=== PATIENT | female | born 1995 | race Caucasian/White ===

== ENCOUNTER 2016-11-05 15:44 | Emergency (ER) | payer MEDICAID ==
[~2016-11-05] VITALS: Ht 162.6 cm; Wt 84.8 kg
[2016-11-05 15:56] VITALS: BP_SYST 120
[2016-11-05] MEDS ORDERED: HYDROcodone/ACETAMIN 5-325 MG TAB (NORCO/ VICODIN) PO ONE (16:15)
[2016-11-05 16:56] VITALS: BP_SYST 118
== END 2016-11-05 16:56 | disposition home or self-care (01) ==
LOC: SED 15:44
DX: S82.442D Displaced spiral fracture of shaft of left fibula, subsequent encounter for closed fracture with routine healing (principal); W10.9XXD Fall (on) (from) unspecified stairs and steps, subsequent encounter
CPT/HCPCS: 99283

== ENCOUNTER 2018-05-15 10:38 | Emergency (ER) | payer MEDICAID ==
[~2018-05-15] VITALS: Ht 162.6 cm; Wt 72.6 kg
[2018-05-15 10:45] VITALS: BP_SYST 100
--- NOTE | 2018-05-15 11:03 | NUR ---
Pt medicated in triage per fever protocol.
[2018-05-15] MEDS ORDERED: ACETAMINOPHEN 500 MG TABLET ONE (11:05)
[2018-05-15] MEDS ORDERED: ACETAMINOPHEN 500 MG TABLET PO ONE (11:15)
--- NOTE | 2018-05-15 11:35 | NUR ---
Patient to ER bed 5 to gown for evaluation. Side rails up. Report given to Jacky WORKMAN.
--- NOTE | 2018-05-15 11:40 | NUR ---
Pt presents to ED with c/o fever x 2 days. For the past week she has experienced UTI symptoms of dysuria and frequency. Pt reports she has a 3 month old baby which she breast feeds. Otherwise pt denies chest pain, sob, hematuria, flank pain, abdominal pain, nausea, vomiting, diarrhea, or any other complaints at this time.
--- NOTE | 2018-05-15 11:50 | NUR ---
ER Dr. Pabon at bedside examining patient.
[2018-05-15] MEDS ORDERED: NACL 0.9% 1,000 ML IV ONE (11:54)
--- NOTE | 2018-05-15 11:54 | NUR ---
Temp recheck after medication 98.5F
[2018-05-15] MEDS ORDERED: ONDANSETRON HCL 4 MG/2 ML VIAL IVP ONE (12:00)
--- NOTE | 2018-05-15 12:05 | NUR ---
# 20 gauge angiocath placed to LAC. Use of asceptic technique. Opsite placed over site. Blood return noted. Blood for lab drawn from site. Flushed with 10 cc of normal saline. No evidence of infiltration noted. Patient tolerated well.
[2018-05-15 12:33] LABS: BILIRUBIN,URINE 1+ (NEGATIVE); BLOOD, URINE 1+ (NEGATIVE); CLARITY/URINE CLOUDY (CLEAR); COLOR,URINE YELLOW (YELLOW); GLUCOSE,URINE NEGATIVE (NEGATIVE); KETONES,URINE TRACE (NEGATIVE); LEUKOCYTE ESTERASE ,URINE 2+ (NEGATIVE); NITRITE, URINE NEGATIVE (NEGATIVE); PROTEIN URINE 2+ (NEGATIVE)
[2018-05-15 12:36] LABS: BASOPHILS % (AUTO) 0.1 % (0.0-2.0); HEMOGLOBIN 12.2 g/dL (12.0-16.0); LYMPHOCYTES % (AUTO) 5.4 % (20.5-51.5); MEAN CORPUSCULAR HEMOGLOBIN 29 pg (27-31); MEAN CORPUSCULAR HGB CONC 34 % (32-36); MEAN CORPUSCULAR VOLUME 86 fL (79.0-98.0); MONOCYTES # (AUTO) 1.5 K/uL (0.0-1.0); MONOCYTES % (AUTO) 8.1 % (1.7-9.3); NEUTROPHILS % (AUTO) 86.4 % (40.0-70.0); PLATELET COUNT (AUTO) 188 K/uL (130-430); WHITE BLOOD COUNT (AUTO) 18.5 K/uL (4.8-10.8)
[2018-05-15] MEDS ORDERED: ACETAMINOPHEN 120 MG SUPP.RECT RC ONE (12:45)
[2018-05-15] MEDS ORDERED: IBUPROFEN 800 MG TABLET PO ONE (12:45)
[2018-05-15 12:46] LABS: BACTERIA,URINE MODERATE /HPF (None Seen); WBC,URINE 50-80 /HPF (0-3)
[2018-05-15 12:47] LABS: MUCUS,URINE 1+ /LPF (None Seen)
--- NOTE | 2018-05-15 12:47 | NUR ---
Temp 97.[address] Pabon.
[2018-05-15 12:55] LABS: CALCIUM 8.8 mg/dL (8.4-11.0); CREATININE 0.96 mg/dL (0.55-1.30); POTASSIUM 3.2 mmol/L (3.5-5.1)
[2018-05-15 12:59] LABS: ALBUMIN 3.1 g/dL (3.4-4.8); INR 1.1 (0.8-1.2); PROTHROMBIN TIME 10.9 SECS (9.5-12.5); TOTAL BILIRUBIN 0.3 mg/dL (0.0-1.0)
--- NOTE | 2018-05-15 13:01 | NUR ---
Radiology at bedside.
[2018-05-15] MEDS ORDERED: cefTRIAXone 1 GM IVPB PREMIX 50 ML IV ONE (13:15)
[2018-05-15 14:00] VITALS: BP_SYST 105
--- NOTE | 2018-05-15 14:00 | NUR ---
Patient given written and verbal discharge instructions and verbalizes understanding. ER MD discussed with patient the results and treatment provided. Patient in stable condition. ID arm band removed. IV catheter removed intact and dressing applied, no active bleeding. Rx of Keflex,Tylenol given. Patient educated on pain management and to follow up with PMD. Pain Scale 0. Opportunity for questions provided and answered. Medication side effect fact sheet provided.
== END 2018-05-15 14:00 | disposition home or self-care (01) ==
LOC: SED 10:38
DX: N30.90 Cystitis, unspecified without hematuria (principal); R50.9 Fever, unspecified
CPT/HCPCS: 36415; 71045; 80053; 81000; 81025; 83605; 83690; 85025; 85610; 85730; 87040; 87086; 87186; 96365; 96375; 99284; J0696; J2405; J7030

== ENCOUNTER 2022-09-08 18:04 | Emergency (ER) | payer MEDICAID ==
[~2022-09-08] VITALS: Ht 162.6 cm; Wt 81.6 kg
[2022-09-08 18:11] VITALS: BP_SYST 133
[2022-09-08] MEDS ORDERED: LORazepam 1 MG TABLET PO ONE (19:45)
== END 2022-09-08 20:31 | disposition home or self-care (01) ==
LOC: SED 18:04
DX: F41.0 Panic disorder [episodic paroxysmal anxiety] (principal); F43.29 Adjustment disorder with other symptoms; R06.4 Hyperventilation; Z79.899 Other long term (current) drug therapy
CPT/HCPCS: 81025; 99283

== ENCOUNTER 2022-10-25 17:11 | Emergency (ER) | payer MEDICAID ==
[~2022-10-25] VITALS: Ht 167.6 cm; Wt 99.8 kg
[2022-10-25 17:35] VITALS: BP_SYST 134
[2022-10-25] MEDS ORDERED: LORazepam 1 MG TABLET PO ONE (20:00)
[2022-10-25] MEDS ORDERED: LORA-259 PO (20:00)
[2022-10-25] MEDS ORDERED: IBUPROFEN 800 MG TABLET PO ONE (20:00)
[2022-10-25 21:01] VITALS: BP_SYST 120
== END 2022-10-25 21:01 | disposition home or self-care (01) ==
LOC: SED 17:11
DX: F41.0 Panic disorder [episodic paroxysmal anxiety] (principal); Z79.899 Other long term (current) drug therapy
CPT/HCPCS: 99283